=== PATIENT | female | born 1975 | race Caucasian/White ===

== ENCOUNTER 2017-09-15 10:41 | Emergency (ER) | payer BC, MEDICAID ==
[~2017-09-15] VITALS: Ht 154.9 cm; Wt 55.0 kg
[2017-09-15] MEDS ORDERED: TAM75C PO (11:10)
[2017-09-15] MEDS ORDERED: IBUP-1984 PO (11:10)
[2017-09-15 11:19] VITALS: BP 127/73
== END 2017-09-15 11:21 | disposition home or self-care (01) ==
LOC: ER 10:42
DX: J11.1 Influenza due to unidentified influenza virus with other respiratory manifestations (principal); R07.89 Other chest pain
CPT/HCPCS: 99283

== ENCOUNTER 2017-09-17 12:46 | Emergency (ER) | payer MEDICAID, OTHER ==
[~2017-09-17] VITALS: Ht 154.9 cm; Wt 56.8 kg
[~2017-09-17 12:46] MED LIST: IBUP-1984 PO; TAM75C PO
[2017-09-17 14:10] VITALS: BP 135/96
== END 2017-09-17 14:11 | disposition home or self-care (01) ==
LOC: ER 12:46
DX: R21 Rash and other nonspecific skin eruption (principal); T37.5X5A Adverse effect of antiviral drugs, initial encounter; B09 Unspecified viral infection characterized by skin and mucous membrane lesions; Y92.89 Other specified places as the place of occurrence of the external cause
CPT/HCPCS: 99281

== ENCOUNTER 2020-01-30 18:35 | Emergency (ER) | payer MEDICAID, OTHER ==
[~2020-01-30] VITALS: Ht 154.9 cm; Wt 55.0 kg
[2020-01-30] MEDS ORDERED: PRED20TA PO (19:16)
[2020-01-30] MEDS ORDERED: AMOX500C2 PO (19:16)
[2020-01-30 19:42] VITALS: BP 170/105
== END 2020-01-30 19:45 | disposition home or self-care (01) ==
LOC: ER 18:35
DX: J32.9 Chronic sinusitis, unspecified (principal); Z88.5 Allergy status to narcotic agent; Z88.8 Allergy status to other drugs, medicaments and biological substances; Z79.2 Long term (current) use of antibiotics; Z79.899 Other long term (current) drug therapy
CPT/HCPCS: 99283

== ENCOUNTER 2020-02-25 07:30 | Emergency (ER) | payer MEDICAID, OTHER ==
[~2020-02-25] VITALS: Ht 154.9 cm; Wt 56.8 kg
[~2020-02-25 07:30] MED LIST changes: +AMOX500C2 PO; -IBUP-1984 PO; -TAM75C PO
[2020-02-25] MEDS ORDERED: LIDOcaine 5% patch TP ONE (08:40)
[2020-02-25] MEDS ORDERED: LIDOcaine 5% patch TP SCH (08:40)
[2020-02-25 09:12] VITALS: BP 134/99
== END 2020-02-25 09:14 | disposition home or self-care (01) ==
LOC: ER 07:31
DX: S16.1XXA Strain of muscle, fascia and tendon at neck level, initial encounter (principal); M54.2 Cervicalgia; J02.9 Acute pharyngitis, unspecified; R42 Dizziness and giddiness; F41.9 Anxiety disorder, unspecified; Z90.710 Acquired absence of both cervix and uterus; Z88.8 Allergy status to other drugs, medicaments and biological substances; Z79.2 Long term (current) use of antibiotics; X58.XXXA Exposure to other specified factors, initial encounter; Y93.89 Activity, other specified; Y92.89 Other specified places as the place of occurrence of the external cause; Y99.8 Other external cause status
CPT/HCPCS: 93005; 99283

== ENCOUNTER 2021-05-29 15:01 | Emergency (ER) | payer MEDICAID ==
[~2021-05-29] VITALS: Ht 154.9 cm; Wt 56.8 kg
[2021-05-29 15:09] VITALS: BP 118/92
[2021-05-29] MEDS ORDERED: BUDE90AE IH (16:12)
[2021-05-29] MEDS ORDERED: AZIT500T PO (16:12)
== END 2021-05-29 16:22 | disposition home or self-care (01) ==
LOC: ER 15:01
DX: U07.1 COVID-19 (principal); J40 Bronchitis, not specified as acute or chronic; F41.9 Anxiety disorder, unspecified; Z88.8 Allergy status to other drugs, medicaments and biological substances; Z79.899 Other long term (current) drug therapy
CPT/HCPCS: 71045; 99283